=== PATIENT | male | born 1940 | race Caucasian/White ===

== ENCOUNTER 2022-08-03 17:41 | Emergency (ER) | payer MEDICARE ==
[~2022-08-03] VITALS: Ht 180.3 cm; Wt 115.7 kg
--- NOTE | 2022-08-04 03:59 | NUR ---
Dr. Gregg at bedside for MSE.
--- NOTE | 2022-08-04 04:00 | NUR ---
pt c/o groin pain and bilat leg pain.
[2022-08-04] MEDS ORDERED: PRAMIPEXOLE 0.25 MG TABLET PO SCH (04:15)
[2022-08-04] MEDS ORDERED: HYDR2TAB4 PO (04:21)
[2022-08-04] MEDS ORDERED: CLONAZEPAM 0.5 MG TABLET PO ONE (04:30)
[2022-08-04] MEDS ORDERED: GABAPENTIN 300 MG CAPSULE PO ONE (04:30)
[2022-08-04] MEDS ORDERED: PRAMIPEXOLE 0.25 MG TABLET PO ONE (04:30)
[2022-08-04] MEDS ORDERED: GABAPENTIN 300 MG CAPSULE ONE (04:39)
[2022-08-04] MEDS ORDERED: HYDROMORPHONE 2 MG/1 ML DISP.SYRIN ONE (04:40)
[2022-08-04] MEDS ORDERED: CLONAZEPAM 0.5 MG TABLET ONE (04:40)
[2022-08-04] MEDS ORDERED: HYDROMORPHONE 1 MG/1 ML DISP.SYRIN IM ONE (04:45)
--- NOTE | 2022-08-04 04:52 | NUR ---
pt signed discharge paperwork. we will have to arrange for transport back to his assisted living via ambulance.
--- NOTE | 2022-08-04 05:09 | NUR ---
Called [facility] ambulance, ETA IS 1hr.
--- NOTE | 2022-08-04 05:40 | NUR ---
[facility] here to transport pt back to [facility].
[2022-08-04 05:53] VITALS: BP 138/59
--- NOTE | 2022-08-04 05:53 | NUR ---
pt transported back to his facility.
== END 2022-08-04 05:54 ==
LOC: ER 17:44
DX: S39.011A Strain of muscle, fascia and tendon of abdomen, initial encounter (principal); X50.3XXA Overexertion from repetitive movements, initial encounter; Y92.89 Other specified places as the place of occurrence of the external cause; G25.81 Restless legs syndrome; G47.30 Sleep apnea, unspecified; Z88.1 Allergy status to other antibiotic agents; Z88.5 Allergy status to narcotic agent; Z88.0 Allergy status to penicillin
CPT/HCPCS: 99284; 72170; 96372; J1170; A4663